=== PATIENT | female | born 1995 | race Caucasian/White ===

== ENCOUNTER 2016-08-13 15:45 | Emergency (ER) | payer SELFPAY ==
--- NOTE | 2016-08-13 16:20 | ERPHSYRPT ---
<FRAN COOL - Last Filed: 08/13/16 21:31> - History of Present Illness Source: patient Exam Limitations: no limitations Patient Subjective Stated Complaint: dizziness Triage Nursing Assessment: has been dizzy since yesterday. states she went to [facility] on 08/04 at 7 weeks and thinks she miscarried in the bathroom with 'clots and tissue' and then didnt wait to be seen. states she is not bleeding constantly now but is intermittently passing black mucus. states this is her 3rd miscarriage. states 'i just was tired of everyone asking me about beign knowing i wasnt anymore and i took xanax 1mg x10 last night to try to relax and sleep well. denies suicidal thoughts. skin warm and dry. states more dizzy lying flat. Hx Tetanus, Diphtheria Vaccination/Date Given: Yes Hx Influenza Vaccination/Date Given: No Hx Pneumococcal Vaccination/Date Given: No <MAR PEÑA - Last Filed: 08/14/16 07:42> - History of Present Illness Time Seen by Provider: 08/13/16 16:11 Physician History: Pt. with lower abdominal pain, vaginal bleeding, dizziness for past 2-3 days. Pt had US on 07/19/16 that showed IUP at 5 weeks GA. This was not an official US , as it was done as a favor to her and her from a friend who works in the radiology department. Pt. is a with AB3. Since then pt. with intermittent vaginal bleeding along with passing clots? Cramy, stabbing LLQ abd pain rad to L back, 1010 at 11 AM now 6/10. Took Ibuprofen 1200mg this AM for pain. States took "7 tabs of Xanax" to get to sleep, but no thoughts of harming self or others. Pt. does not know her blood type. States dizziness worse with standing along with blurred vision. No fever, ?chills, no urinary symptoms or vaginal discharge. (MAR PEÑA) Allergies/Adverse Reactions: No Known Drug Allergies Allergy (Unverified 08/13/16 16:04) Home Medications: Alprazolam 1 mg [Xanax 1 mg] 1 mg PO BIDPRN PRN 08/13/16 [History] Fluoxetine HCl [Prozac] 40 mg PO DAILY 08/13/16 [History] - Past Medical History Pertinent Past Medical History: Yes Respiratory History: No Pertinent History Endocrine Medical History: No Pertinent History Musculoskeletal History: No Pertinent History GI Medical History: No Pertinent History History: No Pertinent History Psycho-Social History: Bipolar, Depression Female Reproductive Disorders: No Pertinent History - Past Surgical History Past Surgical History: Yes Musculoskeletal: Other Other Surgical History: orbital plastic repair - Social History Smoking Status: Current every day smoker How long have you smoked: YRS Exposure to second hand smoke: Yes Drug Use: none Patient Lives Alone: No <MAR PEÑA - Last Filed: 08/14/16 07:42> - Physical Exam General Appearance: no apparent distress, alert Eye Exam: PERRL/EOMI, eyes nml inspection Ears, Nose, Throat Exam: normal ENT inspection, TMs normal, pharynx normal, dry mucous membranes Neck Exam: normal inspection, non-tender, supple, full range of motion Respiratory Exam: normal breath sounds, lungs clear, No respiratory distress Cardiovascular Exam: regular rate/rhythm, normal heart sounds, normal peripheral pulses Gastrointestinal/Abdomen Exam: soft, normal bowel sounds, No tenderness, No mass , No rebound Pelvic Exam: other (Pt. with increase anxiety and refusing pelvic exam at this time) Back Exam: normal inspection, normal range of motion, No CVA tenderness, No vertebral tenderness Extremity Exam: normal inspection, normal range of motion, pelvis stable Neurologic Exam: alert, oriented x 3, cooperative, special needs caregiver II-XII nml as tested, normal mood/affect, sensation nml, No motor deficits Skin Exam: normal color, warm, dry Lymphatic Exam: No adenopathy SpO2: 99 Oxygen Delivery: Room Air <MAR PEÑA - Last Filed: 08/14/16 07:42> - Nursing Vital Signs Nursing Vital Signs: Initial Vital Signs Temperature 97.7 F Temperature Source Oral Pulse Rate 78 Respiratory Rate 18 Blood Pressure [Right Arm] 120/70 Pain Intensity 0 <TRAVON,FRAN - Last Filed: 08/13/16 21:31> <MAR PEÑA - Last Filed: 08/14/16 07:42> Ordered Tests: Active Orders 24 hr Category Date Time Status Clean Catch Urine Specimen STAT Care 08/13/16 17:38 Active IV Insertion STAT Care 08/13/16 16:23 Active Orthostatic Vital Signs STAT Care 08/13/16 16:11 Active Pelvic Exam Assist STAT Care 08/13/16 16:23 Active Psychiatric Evaluation STAT Care 08/13/16 18:14 Active BMP Stat Lab 08/13/16 16:29 Completed CBC W DIFF Stat Lab 08/13/16 16:29 Completed HCG, Quantitative (Inhouse) Stat Lab 08/13/16 16:29 Completed UA Stat Lab 08/13/16 16:29 Completed Urine Triage Profile Stat Lab 08/13/16 16:30 Completed Medication Summary Discontinued Medications Generic Name Dose Route Start Last Admin Trade Name Freq PRN Reason Stop Dose Admin Sodium Chloride 1,000 mls @ 999 mls/hr 08/13/16 16:23 08/13/16 16:34 Sodium Chloride 0.9% 1000 Ml IV 08/13/16 17:23 999 mls/hr .Q1H1M STA Administration Sodium Chloride 1,000 mls @ 100 mls/hr 08/13/16 16:30 08/13/16 17:37 Sodium Chloride 0.9% 1000 Ml IV 09/12/16 16:29 100 mls/hr .Q10H ARIANE Administration Sodium Chloride Confirm 08/13/16 16:30 Sodium Chloride 0.9% 1000 Ml Administered 08/13/16 16:31 Dose 1,000 mls @ ud .ROUTE .STK-MED ONE Sodium Chloride Confirm 08/13/16 17:35 Sodium Chloride 0.9% 1000 Ml Administered 08/13/16 17:36 Dose 1,000 mls @ ud .ROUTE .STK-MED ONE Sodium Chloride 1,000 mls @ 999 mls/hr 08/13/16 17:39 08/13/16 18:14 Sodium Chloride 0.9% 1000 Ml IV 08/13/16 18:39 Not Given .Q1H1M STA Lab/Rad Data: Laboratory Result Diagrams 08/13/16 16:29 08/13/16 16:29 Laboratory Results 08/13/16 08/13/16 08/13/16 Range/Units 16:30 16:29 16:29 WBC (4.0-10.5) K/mm3 RBC (4.1-5.4) M/mm3 Hgb (12.0-16.0) gm/dl Hct (35-47) % MCV (78-100) fl MCH (26-32) pg MCHC (32-36) g/dl RDW (11.5-14.0) % Plt Count (150-450) K/mm3 MPV (6-9.5) fl Gran % (36.0-66.0) % Lymphocytes % (24.0-44.0) % Monocytes % (0.0-12.0) % Eosinophils % (0.00-5.0) % Basophils % (0.0-0.4) % Basophils # (0-0.4) Sodium 144 (136-145) mEq/L Potassium 3.6 (3.5-5.1) mEq/L Chloride 107 (98-107) mEq/L Carbon Dioxide 24.4 (21-32) mEq/L Anion Gap 16.2 H (5-15) MEQ/L BUN 9 (9-20) mg/dL Creatinine 0.72 (0.55-1.30) mg/dl Estimated GFR > 60 ML/MIN Glucose 92 (70-110) MG/DL Calcium 8.9 (8.5-10.1) mg/dL Beta HCG, Quant < 1.0 (0-6) IU/L Ur Collection Type CLEAN CATCH Urine Color YELLOW (YELLOW) Urine Appearance CLEAR (CLEAR) Urine pH 7.0 (5-6) Ur Specific [place] 1.020 (1.005-1.025) Urine Protein NEGATIVE (Negative) Urine Glucose (UA) NEGATIVE (NEGATIVE) mg/dL Urine Ketones NEGATIVE (NEGATIVE) Urine Nitrite NEGATIVE (NEGATIVE) Urine Bilirubin NEGATIVE (NEGATIVE) Urine Urobilinogen 2 (0-1) mg/dL Urine WBC (Auto) NEGATIVE (NEGATIVE) Urine RBC (Auto) NEGATIVE (0-5) Darci/ul Urine Opiates Level NEG. (NEGATIVE) Ur Methadone NEG. (NEGATIVE) Urine Barbiturates NEG. (NEGATIVE) Ur Phencyclidine (PCP) NEG. (NEGATIVE) Urine Amphetamine NEG. (NEGATIVE) U Benzodiazepine Level NEG. (NEGATIVE) Urine Cocaine NEG. (NEGATIVE) Urine Marijuana (THC) NEG. (NEGATIVE) Specimen Received 08/13/16 1630 08/13/16 Range/Units 16:29 WBC 5.8 (4.0-10.5) K/mm3 RBC 4.58 (4.1-5.4) M/mm3 Hgb 13.5 (12.0-16.0) gm/dl Hct 40.6 (35-47) % MCV 88.6 (78-100) fl MCH 29.5 (26-32) pg MCHC 33.3 (32-36) g/dl RDW 12.6 (11.5-14.0) % Plt Count 181 (150-450) K/mm3 MPV 11.2 H (6-9.5) fl Gran % 61.9 (36.0-66.0) % Lymphocytes % 27.3 (24.0-44.0) % Monocytes % 9.2 (0.0-12.0) % Eosinophils % 1.4 (0.00-5.0) % Basophils % 0.2 (0.0-0.4) % Basophils # 0.01 (0-0.4) Sodium (136-145) mEq/L Potassium (3.5-5.1) mEq/L Chloride (98-107) mEq/L Carbon Dioxide (21-32) mEq/L Anion Gap (5-15) MEQ/L BUN (9-20) mg/dL Creatinine (0.55-1.30) mg/dl Estimated GFR ML/MIN Glucose (70-110) MG/DL Calcium (8.5-10.1) mg/dL Beta HCG, Quant (0-6) IU/L Ur Collection Type Urine Color (YELLOW) Urine Appearance (CLEAR) Urine pH (5-6) Ur Specific [place] (1.005-1.025) Urine Protein (Negative) Urine Glucose (UA) (NEGATIVE) mg/dL Urine Ketones (NEGATIVE) Urine Nitrite (NEGATIVE) Urine Bilirubin (NEGATIVE) Urine Urobilinogen (0-1) mg/dL Urine WBC (Auto) (NEGATIVE) Urine RBC (Auto) (0-5) Darci/ul Urine Opiates Level (NEGATIVE) Ur Methadone (NEGATIVE) Urine Barbiturates (NEGATIVE) Ur Phencyclidine (PCP) (NEGATIVE) Urine Amphetamine (NEGATIVE) U Benzodiazepine Level (NEGATIVE) Urine Cocaine (NEGATIVE) Urine Marijuana (THC) (NEGATIVE) Specimen Received <TRAVON,FRAN - Last Filed: 08/13/16 21:31> - Progress Progress: improved Air Movement: good Blood Culture(s) Obtained: No Antibiotics given: No Counseled pt/family regarding: lab results, diagnosis <MAR PEÑA - Last Filed: 08/14/16 07:42> - Progress Progress Note: 08/13/16 21:31 Telemental health report reviewed, Patient father will stay with her. Patient is stroongly advised to follow up at [facility] on monday (FRAN COOL) 08/13/16 18:48 Pt. remained very anxious. HCG < 1, which entertain the facts whether pt. was to begin with. Will get [facility] psych consult for pt. due to excessive ingestion of Xanax recently. Pt. given IVF's with improvement of her orthostatic BP. 08/13/16 18:51 (MAR PEÑA) - Departure Time of Disposition: 20:16 Departure Disposition: Home Critical Care Time: Yes Critical Care Time(excluding separately billable procedures): 30-74 minutes <FRAN COOL - Last Filed: 08/13/16 21:31> - Departure Critical Care Time: No <MAR PEÑA - Last Filed: 08/14/16 07:42> - Departure Clinical Impression: Dizziness, Xanax use disorder, mild, abuse Abdominal pain Qualifiers: Abdominal location: generalized Qualified Code(s): R10.84 - Generalized abdominal pain Condition: Stable Referrals: MARIE HINDS [Primary Care Provider] - Instructions: Bipolar Disorder Additional Instructions: please follow up at [facility] on monday. Stay accompanied with somebody 24 hours til you attend [facility].
[2016-08-13] MEDS ORDERED: Sodium Chloride 0.9% 1000 ML 1,000 ML IV STA ×2 (16:23→17:39)
[2016-08-13] MEDS ORDERED: Sodium Chloride 0.9% 1000 ML 1,000 ML ONE ×2 (16:30→17:35)
[2016-08-13] MEDS ORDERED: Sodium Chloride 0.9% 1000 ML 1,000 ML IV SCH (16:30)
[2016-08-13 16:31] LABS: BASOPHIL % 0.2 % (0.0-0.4); Eosinophil % 1.4 % (0.00-5.0); Granulocytes % 61.9 % (36.0-66.0); Lymphocytes % 27.3 % (24.0-44.0); Mean Cell Volume 88.6 fl (78-100); Mean Corpuscular Hemoglobin 29.5 pg (26-32); Mean Platelet Volume 11.2 fl (6-9.5); Monocytes % 9.2 % (0.0-12.0); Platelet Count 181 K/mm3 (150-450); Red Blood Count 4.58 M/mm3 (4.1-5.4); Red Cell Distribution Width 12.6 % (11.5-14.0); White Blood Count 5.8 K/mm3 (4.0-10.5)
[2016-08-13 16:44] LABS: Collection Type CLEAN CATCH
[2016-08-13 16:45] LABS: COMPLETE URINE MICROSCOPIC? NO
[2016-08-13 16:56] LABS: ANION GAP 16.2 MEQ/L (5-15); BLOOD UREA NITROGEN 9 mg/dL (9-20); CHLORIDE 107 mEq/L (98-107); Carbon Dioxide 24.4 mEq/L (21-32); Glucose 92 MG/DL (70-110); HCG, Quantitative (Inhouse) < 1.0 IU/L (0-6); Potassium 3.6 mEq/L (3.5-5.1); SODIUM 144 mEq/L (136-145)
[2016-08-13 22:02] VITALS: BP 120/70; PULSE 78
[2016-08-14 07:43] VITALS: O2SAT 99
== END 2016-08-13 22:01 | disposition home or self-care (01) ==
LOC: ED 15:45
DX: R10.84 Generalized abdominal pain (principal); R42 Dizziness and giddiness; F15.90 Other stimulant use, unspecified, uncomplicated; F19.10 Other psychoactive substance abuse, uncomplicated; Z79.899 Other long term (current) drug therapy
CPT/HCPCS: 36000; 36415; 80048; 80307; 81002; 84702; 85025; 90791; 96360; 96361; 99285; Q3014

== ENCOUNTER 2018-09-19 08:10 | Emergency (ER) | payer BC ==
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
[2018-09-19 09:21] VITALS: BP 114/88; PULSE 82
[2018-09-19] MEDS ORDERED: NORCO 5/325 MG ONE (09:45)
[2018-09-19] MEDS: NORCO 5/325 MG PO ONE (09:46)
[2018-09-19 09:50] VITALS: O2SAT 98
== END 2018-09-19 09:54 | disposition home or self-care (01) ==
LOC: ED 08:10
DX: S09.90XA Unspecified injury of head, initial encounter (principal); V89.0XXA Person injured in unspecified motor-vehicle accident, nontraffic, initial encounter; F31.9 Bipolar disorder, unspecified
CPT/HCPCS: 70450; 99284; A9270-GY

== ENCOUNTER 2023-01-14 15:33 | Emergency (ER) | payer OTHER ==
[2023-01-14 16:12] VITALS: RESP 18; TEMP 99.4
--- NOTE | 2023-01-14 16:19 | ERPHSYRPT ---
- History of Present Illness Time Seen by Provider: 01/14/23 16:19 Source: patient Exam Limitations: no limitations Patient Subjective Stated Complaint: fever and chills Triage Nursing Assessment: Patient reports to ER with c/o fever and chills. Adalid joseph states that she was discharged from [facility] on 01/13/23 following a left kidney removal. Patient reports pain to left side abdomen and back rating 8/10 at this time. Patient has 3 laproscopic incisions to abdomen and 1 incision to pubic region all secure with dermabond. No redness, swelling, warmth or drainage noted to incisions. Patient reports that she has been taking norco 5/325mg po every hours for pain. Per patient she started running a high fever of 103.4 this morning and has since taken tylenol and norco. Temperature at this time 99.3 oral. Physician History: Patient reports to ER with c/o fever and chills. Patient states that she was di scharged from [facility] on 01/13/23 following a left kidney removal. Patient reports pain to left side abdomen and back rating 8/10 at this time. Patient has 3 laproscopic incisions to abdomen and 1 incision to pubic region all secure with dermabond. No redness, swelling, warmth or drainage noted to incisions. Patient reports that she has been taking norco 5/325mg po every 6 hours for pain. Per patient she started running a high fever of 103.4 this morning. Patient reports that she starting having a productive cough w/ green sputum yesterday as well. Difficult to take deep breaths due to abdominal pain. Timing/Duration: yesterday Fever Severity: moderate Fever Therapy FAST FOOD COOK: Acetaminophen, prescription medications Associated Symptoms: abdominal pain, cough, shortness of breath Allergies/Adverse Reactions: No Known Drug Allergies Allergy (Verified 01/14/23 15:51) Home Medications: Hydrocodone/Acetaminophen [Hydrocodone-Acetamin 5-325 mg] 1 tab PO Q8H PRN 01/14/23 [History] Hx Tetanus, Diphtheria Vaccination/Date Given: Yes Hx Influenza Vaccination/Date Given: No Hx Pneumococcal Vaccination/Date Given: No Immunizations Up to Date: Yes Travel Risk - International Travel Have you traveled outside of the country in past 3 weeks: No - Coronavirus Screening Are you exhibiting any of the following symptoms?: No Close contact with a COVID-19 positive Pt in past 14-21 Days: No - Vaccine Status Have you recieved a Covid-19 vaccination: Yes Die Inspector: Unknown - Vaccination Dates Dates if Unknown: unknown - Review of Systems Constitutional: Fever, Chills, Fatigue Ears, Nose, & Throat: No Symptoms Respiratory: Cough, Dyspnea Cardiac: No Symptoms Abdominal/Gastrointestinal: Abdominal Pain, Nausea, Appetite Changes Genitourinary Symptoms: No Symptoms Musculoskeletal: No Symptoms Neurological: No Symptoms - Past Medical History Pertinent Past Medical History: Yes Neurological History: No Pertinent History ENT History: No Pertinent History Cardiac History: No Pertinent History Respiratory History: No Pertinent History Endocrine Medical History: No Pertinent History Musculoskeletal History: No Pertinent History GI Medical History: No Pertinent History History: No Pertinent History Psycho-Social History: Bipolar, Depression Female Reproductive Disorders: No Pertinent History - Past Surgical History Past Surgical History: Yes Neuro Surgical History: No Pertinent History Cardiac: No Pertinent History Respiratory: No Pertinent History Gastrointestinal: No Pertinent History Genitourinary: Kidney Surgery Musculoskeletal: Other Female Surgical History: No Pertinent History Other Surgical History: orbital plastic repair. left kidney removal - Social History Smoking Status: Current every day smoker How long have you smoked: YRS Exposure to second hand smoke: Yes Drug Use: none Patient Lives Alone: No - Female History Hx Now: No - Nursing Vital Signs Nursing Vital Signs: Initial Vital Signs Temperature 99.4 F 01/14/23 15:53 Pulse Rate 119 H 01/14/23 15:53 Respiratory Rate 18 01/14/23 15:53 Blood Pressure 123/77 01/14/23 15:53 O2 Sat by Pulse Oximetry 98 01/14/23 15:53 Pain Scale Pain Intensity 5 - Physical Exam General Appearance: mild distress, thin Eye Exam: eyes nml inspection ENT Exam: normal ENT inspection, TMs normal, pharyngeal erythema, airway intact Neck Exam: normal inspection, supple, full range of motion Respiratory Exam: no respiratory distress, rhonchi Cardiovascular/Chest Exam: tachycardia Gastrointestinal/Abdominal Exam: soft, guarding, tenderness, abnormal bowel sounds, No rebound Neurologic Exam: alert, oriented x 3, cooperative Skin Exam: normal color, warm, dry SpO2 Interpretation: normal SpO2: 98 O2 Delivery: Room Air - Radiology Exams Chest X-ray Interpretation: Interpreted by me (small left pleural effusion, bilateral ground glass opacities), Infiltrates - CT Exams Abdomen/Pelvis CT Interpretation: Tele-radiologist Report (post operative changes of free air, mild ascites, atelectasis LLL w/ small left pleural effusion) Ordered Tests: Medication Summary Discontinued Medications Generic Name Dose Route Start Last Admin Trade Name Dirkq PRN Reason Stop Dose Admin Sodium Chloride 1,000 mls @ 999 mls/hr 01/14/23 16:30 01/14/23 19:13 Sodium Chloride 0.9% 1000 Ml IV 01/14/23 18:30 Infused .Q1H1M ARIANE Infusion Piperacillin Sod/Tazobactam 100 mls @ 200 mls/hr 01/14/23 16:20 01/14/23 16:32 Sod 3.375 gm/ Sodium Chloride IV 01/14/23 16:49 200 mls/hr STAT ONE Administration Sodium Chloride Confirm 01/14/23 16:30 Sodium Chloride 100ml Mini-Bag Plus Administered 01/14/23 16:31 Dose 100 mls @ ud IV .STK-MED ONE Sodium Chloride Confirm 01/14/23 16:29 Sodium Chloride 0.9% 1000 Ml Administered 01/14/23 16:30 Dose 1,000 mls @ ud .ROUTE .STK-MED ONE Sodium Chloride Confirm 01/14/23 17:42 Sodium Chloride 0.9% 1000 Ml Administered 01/14/23 17:43 Dose 1,000 mls @ ud .ROUTE .STK-MED ONE Morphine Sulfate 2 mg 01/14/23 16:22 01/14/23 16:32 Morphine Sulfate 2 Mg/Ml Inj IV 01/14/23 16:23 2 mg STAT ONE Administration Morphine Sulfate Confirm 01/14/23 16:29 Morphine Sulfate 2 Mg/Ml Inj Administered 01/14/23 16:30 Dose 2 mg .ROUTE .STK-MED ONE Ondansetron HCl 4 mg 01/14/23 16:20 01/14/23 16:32 Ondansetron Hcl 4 Mg/2 Ml Vial IV 01/14/23 16:21 4 mg STAT ONE Administration Ondansetron HCl Confirm 01/14/23 16:29 Ondansetron Hcl 4 Mg/2 Ml Vial Administered 01/14/23 16:30 Dose 4 mg .ROUTE .STK-MED ONE Piperacillin Sod/Tazobactam Sod Confirm 01/14/23 16:29 Piperacillin/Tazobactam Sodium 3.375 Gm Vial Administered 01/14/23 16:30 Dose 3.375 gm IV .[facility] ONE Lab/Rad Data: Laboratory Result Diagrams 01/14/23 16:40 01/14/23 16:40 Laboratory Results 01/14/23 01/14/23 01/14/23 Range/Units 17:56 16:40 16:40 WBC (4.0-10.5) x10^3/uL RBC (4.1-5.4) x10^6/uL Hgb (12.0-16.0) g/dL Hct (35-47) % MCV (78-100) fL MCH (26-32) pg MCHC (32-36) g/dL RDW (11.5-14.0) % Plt Count (150-450) x10^3/uL MPV (7.5-11.0) fL Gran % (36.0-66.0) % Immature Gran % (Auto) (0.00-0.4) % Nucleat RBC Rel Count (0.00-0.1) % Eos # (Auto) (0-0.5) x10^3/uL Immature Gran # (Auto) (0.00-0.03) x10^3u/L Absolute Lymphs (auto) (1.0-4.6) x10^3/uL Absolute Monos (auto) (0.0-1.3) x10^3/uL Absolute Nucleated RBC (0.00-0.01) x10^3u/L Lymphocytes % (24.0-44.0) % Monocytes % (0.0-12.0) % Eosinophils % (0.00-5.0) % Basophils % (0.0-0.4) % Absolute Granulocytes (1.4-6.9) x10^3/uL Basophils # (0-0.4) x10^3/uL pO2/FiO2 Ratio % VBG pH (7.32-7.42) VBG pCO2 at Pat Temp (42-55) mm/Hg VBG pO2 at Pat Temp (25-40) mm/Hg VBG HCO3 (22-28) meq/L VBG O2 Sat (Jace) (95-100) VBG Base Excess (-2.0-2.0) VBG Hemoglobin VBG Carboxyhemoglobin (0.0-6.9) % T HGB POC Potassium (3.5-5.1) Sodium 136 L (137-145) mmol/L Potassium 4.1 (3.5-5.1) mmol/L Chloride 102 (98-107) mmol/L Carbon Dioxide 25 (22-30) mmol/L Anion Gap 13.4 (5-15) MEQ/L BUN 7 (7-17) mg/dL Creatinine 1.28 H (0.52-1.04) mg/dL Estimated GFR 52.4 ML/MIN Glucose 96 (74-106) mg/dL Lactic Acid (0.4-2.0) Calcium 8.4 (8.4-10.2) mg/dL Total Bilirubin 0.20 (0.2-1.3) mg/dL AST 26 (14-36) U/L ALT 14 (0-35) U/L Alkaline Phosphatase 47 (38-126) U/L Serum Total Protein 6.7 (6.3-8.2) g/dL Albumin 3.9 (3.5-5.0) g/dL Procalcitonin 0.127 H (0.030-0.080) ng/mL Urine Color Yellow (Yellow) Urine Appearance Clear (Clear) Urine pH 7.5 (4.6-8.0) Ur Specific [place] 1.025 (1.005-1.030) Urine Protein 30 (Negative) Urine Glucose (UA) Negative (Negative) mg/dL Urine Ketones Negative (Negative) Urine Blood Negative (Negative) Urine Nitrite Negative (Negative) Urine Bilirubin Negative (Negative) Urine Urobilinogen 1.0 A (0.2) mg/dL Ur Leukocyte Esterase Negative (Negative) U Hyaline Cast (Auto) NONE SEEN (0-2) /LPF Urine Microscopic RBC 0-2 (0-5) /HPF Urine Microscopic WBC 0-2 (0-5) /HPF Ur Epithelial Cells Moderate A (None Seen) /HPF Urine Bacteria None Seen (None Seen) /HPF Urine Culture Reflexed NO (NO) Slides for Path Review 01/14/23 01/14/23 01/14/23 Range/Units 16:40 16:38 16:38 WBC 5.4 (4.0-10.5) x10^3/uL RBC 3.99 L (4.1-5.4) x10^6/uL Hgb 10.8 L (12.0-16.0) g/dL Hct 34.8 L (35-47) % MCV 87.2 (78-100) fL MCH 27.1 (26-32) pg MCHC 31.0 L (32-36) g/dL RDW 13.1 (11.5-14.0) % Plt Count 150 (150-450) x10^3/uL MPV 10.4 (7.5-11.0) fL Gran % 84.1 H (36.0-66.0) % Immature Gran % (Auto) 0.2 (0.00-0.4) % Nucleat RBC Rel Count 0.0 (0.00-0.1) % Eos # (Auto) 0.01 (0-0.5) x10^3/uL Immature Gran # (Auto) 0.01 (0.00-0.03) x10^3u/L Absolute Lymphs (auto) 0.35 L (1.0-4.6) x10^3/uL Absolute Monos (auto) 0.46 (0.0-1.3) x10^3/uL Absolute Nucleated RBC 0.00 (0.00-0.01) x10^3u/L Lymphocytes % 6.5 L (24.0-44.0) % Monocytes % 8.6 (0.0-12.0) % Eosinophils % 0.2 (0.00-5.0) % Basophils % 0.4 (0.0-0.4) % Absolute Granulocytes 4.51 (1.4-6.9) x10^3/uL Basophils # 0.02 (0-0.4) x10^3/uL pO2/FiO2 Ratio 21.0 % VBG pH 7.46 H (7.32-7.42) VBG pCO2 at Pat Temp 35 L (42-55) mm/Hg VBG pO2 at Pat Temp 30 (25-40) mm/Hg VBG HCO3 24.9 (22-28) meq/L VBG O2 Sat (Jace) 55.3 L (95-100) VBG Base Excess 1.3 (-2.0-2.0) VBG Hemoglobin 12.0 VBG Carboxyhemoglobin 4.3 (0.0-6.9) % T HGB POC Potassium 4.5 (3.5-5.1) Sodium (137-145) mmol/L Potassium (3.5-5.1) mmol/L Chloride (98-107) mmol/L Carbon Dioxide (22-30) mmol/L Anion Gap (5-15) MEQ/L BUN (7-17) mg/dL Creatinine (0.52-1.04) mg/dL Estimated GFR ML/MIN Glucose (74-106) mg/dL Lactic Acid 1.5 (0.4-2.0) Calcium (8.4-10.2) mg/dL Total Bilirubin (0.2-1.3) mg/dL AST (14-36) U/L ALT (0-35) U/L Alkaline Phosphatase (38-126) U/L Serum Total Protein (6.3-8.2) g/dL Albumin (3.5-5.0) g/dL Procalcitonin (0.030-0.080) ng/mL Urine Color (Yellow) Urine Appearance (Clear) Urine pH (4.6-8.0) Ur Specific [place] (1.005-1.030) Urine Protein (Negative) Urine Glucose (UA) (Negative) mg/dL Urine Ketones (Negative) Urine Blood (Negative) Urine Nitrite (Negative) Urine Bilirubin (Negative) Urine Urobilinogen (0.2) mg/dL Ur Leukocyte Esterase (Negative) U Hyaline Cast (Auto) (0-2) /LPF Urine Microscopic RBC (0-5) /HPF Urine Microscopic WBC (0-5) /HPF Ur Epithelial Cells (None Seen) /HPF Urine Bacteria (None Seen) /HPF Urine Culture Reflexed (NO) Slides for Path Review YES - Progress Progress: improved Progress Note: Sepsis protocol initiated w/ Zosyn, NS bolus and lactate. CT abd showed expected post op changes. CXR concerning for atypical PNA. On reevaluation HR was down and she reports feeling much better. Encouraged us of IS 10 times per hour for the next week. Will prescribe Z pack. Follow up w/ PCP in 3-5 days. Counseled pt/family regarding: lab results, diagnosis, need for follow-up, rad results Medical Desision Making - Diagnostic Testing Diagnostic test were ordered, analyzed, and reviewed by me: Yes Radiological Interpretation: Interpreted by me - Risk of complications The pt has a mod risk of morbidity or mortality based on: Need for prescription drug management - Departure Departure Disposition: Home Clinical Impression: Atypical pneumonia, CTAHERINE (acute kidney injury), Anemia Condition: Stable Critical Care Time: No Referrals: CHIQUITA WILLIAM [NON-STAFF PHY W/O PRIVILEGES] - Follow up/PCP as directed Instructions: Pneumonia in adults, Pneumonia, Adult (DC) Prescriptions: Azithromycin [Azithromycin 250 mg Pack] 250 mg PO UD #6 tablet
[2023-01-14] MEDS ORDERED: PIPERACILLIN/TAZOBACTAM 3.375 GM in Sodium Chloride 100ML MINI-BAG PLUS 100 ML IV ONE (16:20)
[2023-01-14] MEDS ORDERED: Zofran 4 MG/2 ML VIAL IV ONE (16:20)
[2023-01-14] MEDS ORDERED: MORPHINE SULFATE 2 MG INJ IV ONE (16:22)
[2023-01-14] MEDS ORDERED: PIPERACILLIN/TAZOBACTAM IV ONE (16:29)
[2023-01-14] MEDS ORDERED: Zofran 4 MG/2 ML VIAL ONE (16:29)
[2023-01-14] MEDS ORDERED: Sodium Chloride 0.9% 1000 ML 1,000 ML ONE ×2 (16:29→17:42)
[2023-01-14] MEDS ORDERED: MORPHINE SULFATE 2 MG INJ ONE (16:29)
[2023-01-14] MEDS ORDERED: Sodium Chloride 100ML MINI-BAG PLUS 100 ML IV ONE (16:30)
[2023-01-14] MEDS: Sodium Chloride 0.9% 1000 ML 1,000 ML IV SCH ×2 (16:33→17:45)
[2023-01-14 16:43] LABS: VBG BASE EXCESS 1.3 (-2.0-2.0); VBG CARBOXYHEMOGLOBIN 4.3 % T HGB (0.0-6.9); VBG HCO3- 24.9 meq/L (22-28); VBG O2 SATURATION 55.3 (95-100); VBG POTASSIUM 4.5 (3.5-5.1); VBG pH 7.46 (7.32-7.42)
[2023-01-14 16:45] LABS: Absolute Neutrophil Ct (ANC) 4.51 x10^3/uL (1.4-6.9); BASOPHIL % 0.4 % (0.0-0.4); Basophil (Absolute #) 0.02 x10^3/uL (0-0.4); Eosinophil % 0.2 % (0.00-5.0); Eosinophil (Absolute #) 0.01 x10^3/uL (0-0.5); Hematocrit 34.8 % (35-47); Hemoglobin 10.8 g/dL (12.0-16.0); IMMATURE GRAN # 0.01 x10^3u/L (0.00-0.03); IMMATURE GRAN % 0.2 % (0.00-0.4); Lymphocyte (Absolute #) 0.35 x10^3/uL (1.0-4.6); Lymphocytes % 6.5 % (24.0-44.0); Mean Cell Volume 87.2 fL (78-100); Mean Corpuscular Hemoglobin 27.1 pg (26-32); Mean Platelet Volume 10.4 fL (7.5-11.0); Monocyte (Absolute #) 0.46 x10^3/uL (0.0-1.3); Monocytes % 8.6 % (0.0-12.0); Neutrophil % 84.1 % (36.0-66.0); Platelet Count 150 x10^3/uL (150-450); Red Blood Count 3.99 x10^6/uL (4.1-5.4); Red Cell Distribution Width 13.1 % (11.5-14.0); White Blood Count 5.4 x10^3/uL (4.0-10.5)
[2023-01-14 16:59] LABS: ALBUMIN 3.9 g/dL (3.5-5.0); BILIRUBIN,TOTAL 0.2 mg/dL (0.2-1.3); Calcium 8.4 mg/dL (8.4-10.2); Creatinine 1 1.28 mg/dL (0.52-1.04); EST GLOMERULAR FILTRATION RATE 52.4 ML/MIN; Potassium 4.1 mmol/L (3.5-5.1); Total Protein 6.7 g/dL (6.3-8.2)
[2023-01-14 17:00] LABS: ANION GAP 13.4 MEQ/L (5-15)
[2023-01-14 18:06] LABS: Appearance Clear (Clear); Bacteria None Seen /HPF (None Seen); Bilirubin Negative (Negative); Blood Negative (Negative); Epithelial Cells Moderate /HPF (None Seen); Glucose, Urine Negative (Negative); Hyaline Casts NONE SEEN /LPF (0-2); Ketones Negative (Negative); Leukocyte Esterase Negative (Negative); Nitrite Negative (Negative); Ph 7.5 (4.6-8.0); Protein,Urine Dip 30 (Negative); RBC 0-2 /HPF (0-5); Specific Gravity 1.025 (1.005-1.030); WBC 0-2 /HPF (0-5)
--- NOTE | 2023-01-14 18:13 | XRAY ---
CLINICAL HISTORY:abd pain, fever COMPARISON:None. TECHNIQUE:CT of the abdomen and pelvis was performed with axial images as well as sagittal and coronal reconstruction images without intravenous contrast. Images were reviewed in soft tissue and bone window settings. FINDINGS: A moderate amount of free air is noted in the upper abdomen and in the retroperitoneum reflecting pneumoretroperitoneum likely postoperative. Mild ascites are seen in the abdomen. There is evidence of mild subcutaneous soft tissue swelling along with subcutaneous emphysema on the right anterior and lateral abdominal wall. Postoperative changes were seen in the left renal bed showing postoperative collection and fat stranding. Within the limitation of non-IV contrast liver is normal in size. No intra or extrahepatic biliary dilatation. Meanwhile, the gallbladder pancreas, spleen, and right kidney appear unremarkable. The stomach is collapsed. Small and large bowel loops are of normal caliber. The urinary bladder is non-distended. The uterus and ovaries appear unremarkable. No adnexal mass was seen. Few prominent bilateral inguinal lymph nodes with central fatty hilum. Visualized osseous structures appear unremarkable. Included lungs show mild left pleural effusion with basal subsegmental atelectatic changes in the left lower lobe. IMPRESSION: 1. A moderate amount of free air is noted in the upper abdomen and in the retroperitoneum reflecting pneumoretroperitoneum likely postoperative. 2. Mild ascites are seen in the abdomen. 3. There is evidence of mild subcutaneous soft tissue swelling along with subcutaneous emphysema along the anterior abdominal wall in the pelvis. 4. Included lungs show mild left pleural effusion with basal subsegmental atelectatic changes in the left lower lobe. The [facility] was called at [phone] at 05:01 PM DINING ROOM MANAGER, 01/14/2023, and critical medical findings were verbally communicated to Vibha Tang. Electronically Signed by: Mejia Scott MD. (01/14/2023 17:11:43 DINING ROOM MANAGER)
[2023-01-14 18:14] LABS: ADD URINE CULTURE? NO (NO)
[2023-01-14 19:24] VITALS: BP 138/81; PULSE 94
[2023-01-14 19:29] VITALS: O2SAT 98
--- NOTE | 2023-01-14 20:25 | XRAY ---
Indication: Fever. Status post kidney donation 3 days ago. Comparison: None Portable chest inflated and clear. Heart not enlarged. Bony thorax intact. Incidental bilateral subdiaphragmatic free air further detailed on same day CT abdomen/pelvis.
[2023-01-14 22:27] LABS: Slide Review 1 YES
== END 2023-01-14 20:01 | disposition home or self-care (01) ==
LOC: ED 15:33
DX: J18.9 Pneumonia, unspecified organism (principal); N17.9 Acute kidney failure, unspecified; D64.9 Anemia, unspecified; R50.9 Fever, unspecified; Z79.891 Long term (current) use of opiate analgesic; Z72.0 Tobacco use
CPT/HCPCS: 36415; 71045; 74176; 80053; 81001; 82805; 83605; 84145; 85025; 87040; 94760; 96360; 96365; 96374; 96375; 99284; J2270; J2405